=== PATIENT | female | born 1950 | race American Indian/Alaskan Native ===

== ENCOUNTER 2019-02-18 16:10 | Outpatient (CLI) | payer OTHER ==
--- NOTE | 2019-02-18 18:34 | Vascular Lab Report ---
PROCEDURE: VL VENOUS DUPLEX LE LT TECHNIQUE: Grayscale, color flow and Doppler waveform imaging of the deep venous structures of the l eft lower extremity and the proximal right lower extremity were obtained. HISTORY: LT.LEG PAIN COMPARISONS: None FINDINGS: There is demonstration of normal compression and normal phasic flow in the deep venous structures of the left lower extremity from the common femoral vein to the popliteal vein. There is demonstration of normal compression and flow in the posterior tibial and peroneal veins. There is demonstration of normal compression and normal phasic flow in the right common femoral and p roximal superficial femoral veins. There is demonstration of a fluid collection in the region of the knee. It is not clear whether or no t this is anterior or posterior to the knee on the static images provided. This may represent a joint effusion. IMPRESSION: 1. No ultrasound evidence of deep venous thrombosis in the left lower extremity nor in the proximal r ight lower extremity. 2. Fluid collection demonstrated in the region of the knee. It is unclear whether not this is anterio r or posterior to the knee on the static images provided. This may represent a joint effusion. If further imaging is required, MRI may be helpful. This document is electronically signed by Anya Multani MD., February 18 2019 06:32:55 PM ET
== END 2019-02-18 16:11 | disposition home or self-care (01) ==
LOC: VAS 16:10
PROVIDERS: ATTEND Preventive Medicine Preventive Medicine/Occupational Environmental Medicine
DX: S80.12XA Contusion of left lower leg, initial encounter (principal); S30.0XXA Contusion of lower back and pelvis, initial encounter; I10 Essential (primary) hypertension; X58.XXXA Exposure to other specified factors, initial encounter; Y93.89 Activity, other specified; Y92.89 Other specified places as the place of occurrence of the external cause; Y99.8 Other external cause status

== ENCOUNTER 2019-03-07 12:48 | Outpatient (CLI) | payer MEDICARE ==
--- NOTE | 2019-03-07 14:54 | Mammography Report ---
BILATERAL DIGITAL SCREENING MAMMOGRAM with CAD: 03/07/19 12:48:00 CLINICAL: Routine screening. COMPARISON:08/28/16 FINDINGS: The breasts are almost entirely fatty. No mass, architectural distortion or suspicious calcifications. IMPRESSION: No mammographic evidence of malignancy. BI-RADS CATEGORY: 1 - - Negative RECOMMENDATION: Routine mammographic screening in one year. COMMENT: Patient follow-up letters are generated by our [employer] application.
== END 2019-03-07 12:49 | disposition home or self-care (01) ==
LOC: MAMMO 12:48
PROVIDERS: ATTEND Obstetrics & Gynecology
DX: Z12.31 Encounter for screening mammogram for malignant neoplasm of breast (principal); I10 Essential (primary) hypertension; F17.200 Nicotine dependence, unspecified, uncomplicated
CPT/HCPCS: 77067